=== PATIENT | female | born 1955 | race African-American/Black ===

== ENCOUNTER 2019-07-02 19:19 | Emergency (ER) | payer OTHER ==
[~2019-07-02] VITALS: Ht 165.1 cm; Wt 109.0 kg
[~2019-07-02 19:19] MED LIST: ACET1TAB12 PO; IBUP-2029 PO
[2019-07-02] MEDS ORDERED: CYCLOBENZAPRINE 10MG TABLET PO ONE (22:30)
[2019-07-02] MEDS ORDERED: KETOROLAC 60MG/2ML VIAL IM ONE (22:30)
[2019-07-03] VITALS: BP 145/70
== END 2019-07-03 | disposition home or self-care (01) ==
LOC: ER 19:19
DX: S76.011A Strain of muscle, fascia and tendon of right hip, initial encounter (principal); W10.1XXA Fall (on)(from) sidewalk curb, initial encounter; Y93.89 Activity, other specified; Y92.89 Other specified places as the place of occurrence of the external cause; Y99.8 Other external cause status; I10 Essential (primary) hypertension; Z98.890 Other specified postprocedural states
CPT/HCPCS: 96372; 99283; J1885